=== PATIENT | female | born 1960 | race Caucasian/White ===

== ENCOUNTER 2017-04-03 21:34 | Emergency (ER) | payer OTHER ==
[~2017-04-03] VITALS: Ht 157.5 cm; Wt 71.7 kg
[2017-04-03] MEDS ORDERED: PENICILLIN V POTASSIUM 500 MG TABLET PO ONE ×2 (22:14→22:30)
[2017-04-03 22:22] VITALS: BP 155/80
== END 2017-04-03 22:22 | disposition home or self-care (01) ==
LOC: ER 21:37
DX: R22.0 Localized swelling, mass and lump, head (principal); I10 Essential (primary) hypertension; J45.909 Unspecified asthma, uncomplicated; Z88.6 Allergy status to analgesic agent
CPT/HCPCS: 99283; A4606; Z7610